=== PATIENT | male | born 1945 | race Caucasian/White ===

== ENCOUNTER 2020-09-30 07:55 | Outpatient (CLI) | payer OTHER ==
--- NOTE | 2020-09-30 09:35 | PET ---
EXAM: PET/CT HISTORY: Solitary pulmonary nodule TECHNIQUE: PET scanning with CT attenuation correction was performed from the base of the brain to the proximal thighs following the intravenous administration of 10.7 millicuries [id number]. COMPARISON: CT report from [facility] dated September 14, 2020. Images were not provided with the evaluation. Comparisons are made with a prior CT of the thorax dated April 12, 2016. FINDINGS: Biodistribution:The biodistribution for the exam appears acceptable. Head and neck: There is appropriate background activity within the brain. No hypermetabolic lymphaden opathy or masses identified. There is some areas of increased metabolic uptake within the region of the vocal cords likely related to phonation. Thorax: The area of serpiginous and linear scarring involving the right lower lobe demonstrates no hy permetabolic uptake. There is a single focus of increased hypermetabolic uptake involving the posterior right 11th rib adjacent to a healing right 11th rib fracture. The peak SUV activity is 2.89 and mean activity is 2.57. No additional hypermetabolic focus is evident. There is severe emphysema. Abdomen and pelvis: There is expected background activity within the GI and systems. No hypermetab olic mass, lymphadenopathy or ascites is present. Osseous structures and skin: Focus of hypermetabolic uptake involving the posterior right 11th rib as detailed above. This is associated with a healing right posterior 11th rib fracture. There is a stable remote healed right 12th rib fracture. There is a healed T6 burst fracture. No additional hype rmetabolic skin or osseous lesion is identified. IMPRESSION: Probably normal PET scan. 1. Linear serpiginous densities seen within the right lower lobe have been relatively stable since e comparison in 2015 is likely related to areas of scarring in the right lower lobe. No hypermetabolic activity associated with these linear densities. There is a single focus of increased hypermetabolic uptake that is only mildly hypermetabolic and associated with a healing posterior right 11th rib fracture. CT follow-up in 6-8 weeks is recommended to document stability.
== END 2020-09-30 07:56 | disposition home or self-care (01) ==
LOC: PET 07:55
PROVIDERS: ATTEND Internal Medicine Pulmonary Disease
DX: R91.1 Solitary pulmonary nodule (principal); J98.4 Other disorders of lung; R94.8 Abnormal results of function studies of other organs and systems; S22.31XD Fracture of one rib, right side, subsequent encounter for fracture with routine healing
CPT/HCPCS: 78815; A9552